=== PATIENT | male | born 1995 | race American Indian/Alaskan Native ===

== ENCOUNTER 2017-06-18 18:40 | Emergency (ER) | payer OTHER ==
[2017-06-18 19:37] VITALS: BP 151/87
[2017-06-18] MEDS ORDERED: TYLENOL PO ONE (21:21)
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
--- NOTE | 2017-06-18 22:43 | Cat Scan Report ---
FINAL REPORT EXAM: CT CERVICAL SPINE WO CON HISTORY: c/o neck pain TECHNIQUE: CT cervical spine with reconstructions PRIORS: None. FINDINGS: Vertebral bodies demonstrate normal height and alignment. The disk spaces are within normal limits. The facet joints demonstrate normal alignment. The spinous processes are intact. Craniocervical junction is unremarkable. C1 and C2 are intact. IMPRESSION: Negative CT cervical spine. No acute abnormality seen. Is
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
== END 2017-06-18 22:31 | disposition home or self-care (01) ==
LOC: ED 18:40
DX: S00.81XA Abrasion of other part of head, initial encounter (principal); M54.2 Cervicalgia; G44.89 Other headache syndrome; F17.200 Nicotine dependence, unspecified, uncomplicated; F12.10 Cannabis abuse, uncomplicated; V89.2XXA Person injured in unspecified motor-vehicle accident, traffic, initial encounter; Y93.89 Activity, other specified; Y92.89 Other specified places as the place of occurrence of the external cause; Y99.8 Other external cause status
CPT/HCPCS: 70450; 72125

== ENCOUNTER 2017-08-12 14:28 | Emergency (ER) | payer SELFPAY ==
--- NOTE | 2017-08-12 21:48 | Emergency Department Report ---
ED General Adult HPI - General Chief complaint: Rectal Pain Stated complaint: HEMROID Time Seen by Provider: 08/12/17 20:56 Source: patient Mode of arrival: Ambulatory Limitations: No Limitations - History of Present Illness Initial comments: Pt is a 22 M pmhx of hemorrhoids who presents with rectal pain. Pt's rectal pain is a 5/10 nothing makes the rectal pain better and defecation makes the pain worse. Pt states that he has had multiple hemorrhoids in the past but they usually last only two days. Pt states that he hasn't tried any sitz baths and that his diet is low on fiber. He denies having any bloody stools, n/v, constipation or fever. - Related Data Previous Rx's Medication Instructions Recorded Last Taken Type Bacitracin Zinc Oint [Antibiotic 1 applicatio TP BID #1 oint...g. 06/18/17 Unknown Rx Oint] Cyclobenzaprine [Flexeril] 10 mg PO TID PRN #10 tablet 06/18/17 Unknown Rx Ibuprofen [Motrin] 800 mg PO Q8HR PRN #30 tablet 06/18/17 Unknown Rx Naproxen 250 mg PO Q12HR #20 tablet 08/12/17 Unknown Rx Allergies Allergy/AdvReac Type Severity Reaction Status Date / Time No Known Allergies Allergy Unverified 08/12/17 15:30 ED Review of Systems ROS: Stated complaint: HEMROID Other details as noted in HPI Constitutional: denies: chills, fever Eyes: denies: eye pain, eye discharge, vision change ENT: denies: ear pain, throat pain Respiratory: denies: cough, shortness of breath, wheezing Cardiovascular: denies: chest pain, palpitations Endocrine: no symptoms reported Gastrointestinal: other (rectal pain ). denies: abdominal pain, nausea, diarrhea Genitourinary: denies: urgency, dysuria Musculoskeletal: denies: back pain, joint swelling, arthralgia Skin: denies: rash, lesions Neurological: denies: headache, weakness, paresthesias Psychiatric: denies: anxiety, depression Hematological/Lymphatic: denies: easy bleeding, easy bruising ED Past Medical Hx - Past Medical History Previous Medical History?: No - Surgical History Past Surgical History?: No - Social History Smoking Status: Current Every Day Smoker Substance Use Type: None - Medications Home Medications: Home Medications Medication Instructions Recorded Confirmed Last Taken Type Bacitracin Zinc Oint [Antibiotic 1 applicatio TP BID #1 oint...g. 06/18/17 Unknown Rx Oint] Cyclobenzaprine [Flexeril] 10 mg PO TID PRN #10 tablet 06/18/17 Unknown Rx Ibuprofen [Motrin] 800 mg PO Q8HR PRN #30 tablet 06/18/17 Unknown Rx Naproxen 250 mg PO Q12HR #20 tablet 08/12/17 Unknown Rx ED Physical Exam - General Limitations: No Limitations General appearance: alert, in no apparent distress - Head Head exam: Present: atraumatic, normocephalic - Eye Eye exam: Present: normal appearance - ENT ENT exam: Present: mucous membranes moist - Neck Neck exam: Present: normal inspection - Respiratory Respiratory exam: Present: normal lung sounds bilaterally. Absent: respiratory distress - Cardiovascular Cardiovascular Exam: Present: regular rate, normal rhythm. Absent: systolic murmur, diastolic murmur, rubs, gallop - GI/Abdominal GI/Abdominal exam: Present: soft, normal bowel sounds - Rectal Rectal exam: Present: hemorrhoids (external hemorrhoids) - Extremities Exam Extremities exam: Present: normal inspection - Back Exam Back exam: Present: normal inspection - Neurological Exam Neurological exam: Present: alert, oriented X3 - Psychiatric Psychiatric exam: Present: normal affect, normal mood - Skin Skin exam: Present: warm, dry, intact, normal color. Absent: rash ED Course Vital Signs 08/12/17 15:27 Temperature 97.7 F Pulse Rate 61 Respiratory 16 Rate Blood Pressure 130/70 O2 Sat by Pulse 100 Oximetry ED Medical Decision Making - Medical Decision Making Cdx: External hemorrhoid ddx: rectal peduncle, internal hemorrhoid I will recommend sitz baths to the patient and will give patient naprosyn to go home with. Discussed plan with patient patient agrees with plan and additional verbal discharge instructions were given. Critical care attestation.: If time is entered above; I have spent that time in minutes in the direct care of this critically ill patient, excluding procedure time. ED Disposition Clinical Impression: External hemorrhoid Disposition: DC-01 TO HOME OR SELFCARE Is pt being admited?: No Does the pt Need Aspirin: No Condition: Stable Instructions: Hemorrhoids (ED) Prescriptions: Naproxen 250 mg PO Q12HR #20 tablet Referrals: ELIJAH NARVAEZ MD [Primary Care Provider] - 3-5 Days
[2017-08-12 21:52] VITALS: BP 129/83
== END 2017-08-12 21:53 | disposition home or self-care (01) ==
LOC: ED 14:28
DX: K62.5 Hemorrhage of anus and rectum (principal); F17.200 Nicotine dependence, unspecified, uncomplicated
CPT/HCPCS: 99282

== ENCOUNTER 2017-09-09 05:36 | Emergency (ER) | payer SELFPAY ==
[2017-09-09 06:42] VITALS: BP 140/80
[2017-09-09 07:29] LABS: BUN/Creatinine Ratio 10; Blood Urea Nitrogen 12 mg/dL (9-20); Calcium 8.7 mg/dL (8.4-10.2); Hemolysis Index 22
[2017-09-09 07:51] LABS: Hematocrit 45.8 % (35.5-45.6); Hemoglobin 14.9 gm/dl (11.8-15.2); Mean Corpuscular HGB Conc 33 % (32-34); Mean Corpuscular Hemoglobin 29 pg (28-32); Mean Corpuscular Volume 89 fl (84-94); Platelet Count 152 K/mm3 (140-440); Red Blood Count 5.13 M/mm3 (3.65-5.03); Red Cell Distribution Width 14.4 % (13.2-15.2)
[2017-09-09 09:36] LABS: Bilirubin,Urine NEG (Negative); Blood,Urine NEG (Negative); Color,Urine Yellow (Yellow); Mucus,Urine FEW /HPF; Nitrite,Urine NEG (Negative); Protein,Urine <15 mg/dL mg/dL (Negative)
--- NOTE | 2017-09-09 09:38 | Emergency Department Report ---
HPI - General Chief Complaint: Weakness Time Seen by Provider: 09/09/17 09:29 - HPI HPI: 22-year-old -Citizen Of [place] male comes in for concern of having diabetes. Patient reports that he's been having symptoms that makes some syncope that he is a diabetic states that he's been thirsty and feeling dehydrated urinating more blurred vision tingling in his fingertips and states he has a sore on his left toe that is not healing. Patient also states he has had a 20 pound weight loss in the last couple of months without trying. Patient reports that he urinates about 5 times a day. He does admit that he does not drink a lot of fluids. 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 He reports that his weight currently is 189 a few months ago it was 219. Patient has no known drug allergies currently takes no medication and currently has no past medical history. ED Past Medical Hx - Past Medical History Previous Medical History?: No - Surgical History Past Surgical History?: No - Social History Smoking Status: Light Tobacco Smoker - Medications Home Medications: Home Medications Medication Instructions Recorded Confirmed Last Taken Type Bacitracin Zinc Oint [Antibiotic 1 applicatio TP BID #1 oint...g. 06/18/17 Unknown Rx Oint] Cyclobenzaprine [Flexeril] 10 mg PO TID PRN #10 tablet 06/18/17 Unknown Rx Ibuprofen [Motrin] 800 mg PO Q8HR PRN #30 tablet 06/18/17 Unknown Rx Naproxen 250 mg PO Q12HR #20 tablet 08/12/17 Unknown Rx ED Review of Systems ROS: Stated complaint: DIABETEC Other details as noted in HPI Endocrine: increased urine, unexplained weight loss Gastrointestinal: denies: abdominal pain, nausea, diarrhea Genitourinary: denies: urgency, dysuria Musculoskeletal: denies: back pain, joint swelling, arthralgia Skin: denies: rash, lesions Neurological: denies: headache, weakness, paresthesias Psychiatric: denies: anxiety, depression Physical Exam - Physical Exam Vital Signs: Vital Signs 09/09/17 09/09/17 06:09 06:28 Temperature 97.8 F 97.8 F Pulse Rate 70 62 Respiratory 18 18 Rate Blood Pressure 140/80 140/80 O2 Sat by Pulse 95 96 Oximetry Physical Exam: GENERAL APPEARANCE: Well developed, well nourished, in no acute distress. SKIN: Inspection of the skin reveals no rashes, ulcerations or petechiae. HEENT: The sclerae were anicteric and conjunctivae were pink and moist. Extraocular movements were intact and pupils were equal, round, and reactive to light with normal accommodation. External inspection of the ears and nose showed no scars, lesions, or masses. Lips, teeth, and gums showed normal mucosa. The oral mucosa, hard and soft palate, tongue and posterior pharynx were normal. NECK: Supple and symmetric. There was no thyroid enlargement, and no tenderness , or masses were felt. CHEST: Normal AP diameter and normal contour without any kyphoscoliosis. LUNGS: Auscultation of the lungs revealed normal breath sounds without any other adventitious sounds or rubs. CARDIOVASCULAR: There was a regular rate and rhythm without any murmurs, gallops , rubs. The carotid pulses were normal and 2+ bilaterally without bruits. Peripheral pulses were 2+ and symmetric. ABDOMEN: Soft and nontender with normal bowel sounds. The liver span was approximately 5-6 cm in the right midclavicular line by percussion. The liver edge was nontender. The spleen was not palpable. There were no inguinal or umbilical hernias noted. No ascites was noted. LYMPH NODES: No lymphadenopathy was appreciated in the neck, axillae or groin. MUSCULOSKELETAL: Gait was normal. There was no tenderness or effusions noted. Muscle strength and tone were normal. EXTREMITIES: No cyanosis, clubbing or edema. NEUROLOGIC: Alert and oriented x 3. Normal affect. Gait was normal. Normal deep tendon reflexes with no pathological reflexes. Sensation to touch was normal. ED Course Vital Signs 09/09/17 09/09/17 06:09 06:28 Temperature 97.8 F 97.8 F Pulse Rate 70 62 Respiratory 18 18 Rate Blood Pressure 140/80 140/80 O2 Sat by Pulse 95 96 Oximetry ED Medical Decision Making - Lab Data Result diagrams: 09/09/17 06:49 09/09/17 06:49 - Medical Decision Making Assessment evaluated this provider fast track. Labs are stable. Discussed with Dr. Porter feels that he has met the EMTALA. Patient is stable enough to have follow-up with outpatient for further evaluation. The callus on your left toe you need to be aware of your shoes that are throbbing your foot. Recommend changing her shoes every couple days. He can apply a pad or callus pad that she can get [id number] from the pharmacies. Patient verbalized understanding Critical care attestation.: If time is entered above; I have spent that time in minutes in the direct care of this critically ill patient, excluding procedure time. ED Disposition Clinical Impression: Callus of foot Disposition: DC-01 TO HOME OR SELFCARE Is pt being admited?: No Does the pt Need Aspirin: No Condition: Stable Additional Instructions: Please follow-up at [facility] or primary care of your choice for further evaluation. Referrals: PRIMARY CARE,MD [Primary Care Provider] - 3-5 Days [facility] [Provider Group] - 3-5 Days [facility] [Provider Group] - 3-5 Days Forms: Work/School Release Form(ED)
== END 2017-09-09 10:02 | disposition home or self-care (01) ==
LOC: ED 05:36
DX: E11.621 Type 2 diabetes mellitus with foot ulcer (principal); F17.200 Nicotine dependence, unspecified, uncomplicated
CPT/HCPCS: 36415; 80048; 81001; 82962; 85027; 99283

== ENCOUNTER 2018-02-03 02:03 | Emergency (ER) | payer SELFPAY ==
[2018-02-03 02:07] VITALS: BP 124/76
--- NOTE | 2018-02-03 03:01 | Emergency Department Report ---
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 his history of frequent ear infections and sinus infections these symptoms started 4 days ago bilateral earache and drainage and decreased hearing there is no fevers no chills no nausea vomiting no vertigo mild tinnitus symptoms are relieved by nothing symptoms are exacerbated by environmental exposure patient has not seen an ENT to this point MD complaint: ear pain Onset/Timin -: days(s) Location: R ear, L ear Severity: moderate Severity scale (0 -10): 4 Quality: aching Consistency: constant Improves with: NSAID Worsens with: movement Associated Symptoms: discharge from ear - Related Data Previous Rx's Medication Instructions Recorded Last Taken Type Bacitracin Zinc Oint [Antibiotic 1 applicatio TP BID #1 oint...g. 06/18/17 Unknown Rx Oint] Cyclobenzaprine [Flexeril] 10 mg PO TID PRN #10 tablet 06/18/17 Unknown Rx Ibuprofen [Motrin] 800 mg PO Q8HR PRN #30 tablet 06/18/17 Unknown Rx Naproxen 250 mg PO Q12HR #20 tablet 08/12/17 Unknown Rx Cipro/Dexameth 0.3/0.1% [Ciprodex 4 drops OT BID #1 bottle 02/03/18 Unknown Rx OTIC] Ibuprofen 800 mg PO TID PRN #30 tablet 02/03/18 Unknown Rx Allergies Allergy/AdvReac Type Severity Reaction Status Date / Time No Known Allergies Allergy Verified 02/03/18 02:12 ED Dental HPI - General Chief complaint: Earache Stated complaint: BILATERAL EAR PAIN Source: patient Mode of arrival: Ambulatory Limitations: No Limitations - Related Data Previous Rx's Medication Instructions Recorded Last Taken Type Bacitracin Zinc Oint [Antibiotic 1 applicatio TP BID #1 oint...g. 06/18/17 Unknown Rx Oint] Cyclobenzaprine [Flexeril] 10 mg PO TID PRN #10 tablet 06/18/17 Unknown Rx Ibuprofen [Motrin] 800 mg PO Q8HR PRN #30 tablet 06/18/17 Unknown Rx Naproxen 250 mg PO Q12HR #20 tablet 08/12/17 Unknown Rx Cipro/Dexameth 0.3/0.1% [Ciprodex 4 drops OT BID #1 bottle 02/03/18 Unknown Rx OTIC] Ibuprofen 800 mg PO TID PRN #30 tablet 02/03/18 Unknown Rx Allergies Allergy/AdvReac Type Severity Reaction Status Date / Time No Known Allergies Allergy Verified 02/03/18 02:12 ED Review of Systems ROS: Stated complaint: BILATERAL EAR PAIN Other details as noted in HPI Constitutional: denies: chills, fever Eyes: denies: eye pain, eye discharge, vision change ENT: ear pain Respiratory: denies: cough, shortness of breath, wheezing Cardiovascular: denies: chest pain, palpitations Endocrine: no symptoms reported Gastrointestinal: denies: abdominal pain, nausea, diarrhea Genitourinary: denies: urgency, dysuria Musculoskeletal: denies: back pain, joint swelling, arthralgia Skin: denies: rash, lesions Neurological: denies: headache, weakness, paresthesias Psychiatric: denies: anxiety, depression Hematological/Lymphatic: denies: easy bleeding, easy bruising ED Past Medical Hx - Past Medical History Previous Medical History?: No - Surgical History Past Surgical History?: No - Social History Smoking Status: Current Every Day Smoker Substance Use Type: Alcohol - Medications Home Medications: Home Medications Medication Instructions Recorded Confirmed Last Taken Type Bacitracin Zinc Oint [Antibiotic 1 applicatio TP BID #1 oint...g. 06/18/17 Unknown Rx Oint] Cyclobenzaprine [Flexeril] 10 mg PO TID PRN #10 tablet 06/18/17 Unknown Rx Ibuprofen [Motrin] 800 mg PO Q8HR PRN #30 tablet 06/18/17 Unknown Rx Naproxen 250 mg PO Q12HR #20 tablet 08/12/17 Unknown Rx Cipro/Dexameth 0.3/0.1% [Ciprodex 4 drops OT BID #1 bottle 02/03/18 Unknown Rx OTIC] Ibuprofen 800 mg PO TID PRN #30 tablet 02/03/18 Unknown Rx ED Physical Exam - General Limitations: No Limitations General appearance: alert, in no apparent distress - Head Head exam: Present: atraumatic - Eye Eye exam: Present: normal appearance, PERRL, EOMI Pupils: Present: normal accommodation - ENT ENT exam: Present: normal orophraynx, mucous membranes moist, normal external ear exam, other (bilat canal erythema pain purulent drainage ) - Expanded ENT Exam Expanded Ear exam: Present: normal external inspection. Absent: auricular trauma TM/Canal exam: Loss of Landmarks: Right TM, Left TM, Canal Discharge: Left TM, Right TM, Canal Tenderness: Right TM, Left TM Mouth exam: Present: normal external inspection, drooling, tongue normal. Absent: trismus, muffled voice, tongue elevation, laceration Throat exam: Positive: tonsillar erythema. Negative: tonsillomegaly, tonsillar exudate, R peritonsillar mass, L peritonsillar mass - Neck Neck exam: Present: normal inspection, full ROM. Absent: tenderness, meningismus, lymphadenopathy, thyromegaly - Respiratory Respiratory exam: Present: normal lung sounds bilaterally. Absent: respiratory distress, wheezes, stridor, chest wall tenderness - Cardiovascular Cardiovascular Exam: Present: regular rate, normal rhythm, normal heart sounds. Absent: systolic murmur, diastolic murmur, rubs, gallop - GI/Abdominal GI/Abdominal exam: Present: soft, normal bowel sounds, hernia. Absent: distended, tenderness, guarding, rebound, rigid, organomegaly, mass, bruit, pulsatile mass - Rectal Rectal exam: Present: deferred - Extremities Exam Extremities exam: Present: normal inspection - Back Exam Back exam: Present: normal inspection, full ROM. Absent: tenderness, CVA tenderness (R), CVA tenderness (L), muscle spasm, paraspinal tenderness, vertebral tenderness, rash noted - Neurological Exam Neurological exam: Present: alert, oriented X3, CN II-XII intact, normal gait, reflexes normal. Absent: motor sensory deficit - Psychiatric Psychiatric exam: Present: normal affect, normal mood. Absent: depressed, agitated, anxious, flat affect, manic, homicidal ideation, suicidal ideation - Skin Skin exam: Present: warm, dry, intact, normal color. Absent: rash ED Course Vital Signs 02/03/18 02/03/18 02:00 02:08 Temperature 97.5 F L 97.5 F L Pulse Rate 65 66 Respiratory 18 18 Rate Blood Pressure 124/76 124/76 O2 Sat by Pulse 99 98 Oximetry ED Medical Decision Making - Medical Decision Making this is OE, plan: Ciprodex 5 drops bid x 7 days , ibuprofen 800 mg po tid prn pain , follow up with ENT in 2-3 days , return to ED if symptoms worsen, pt verbalized agreement and understanding of same for dc to home in stable condition at this time. Critical care attestation.: If time is entered above; I have spent that time in minutes in the direct care of this critically ill patient, excluding procedure time. ED Disposition Clinical Impression: Actinic otitis externa of both ears Qualifiers: Chronicity: acute Qualified Code(s): H60.513 - Acute actinic otitis externa, bilateral Disposition: DC-01 TO HOME OR SELFCARE Is pt being admited?: No Does the pt Need Aspirin: No Instructions: Otitis Externa (ED) Prescriptions: Cipro/Dexameth 0.3/0.1% [Ciprodex OTIC] 4 drops OT BID #1 bottle Ibuprofen 800 mg PO TID PRN #30 tablet PRN Reason: pain fever Referrals: NEELA TONY MD [Staff Physician] - 3-5 Days Forms: Work/School Release Form(ED) Time of Disposition: 03:16
[2018-02-03] MEDS ORDERED: MOTRIN PO ONE (03:15)
== END 2018-02-03 03:50 | disposition home or self-care (01) ==
LOC: ED 02:03
DX: H60.513 Acute actinic otitis externa, bilateral (principal); F17.200 Nicotine dependence, unspecified, uncomplicated
CPT/HCPCS: 99282

== ENCOUNTER 2021-12-07 10:01 | Emergency (ER) | payer SELFPAY ==
[2021-12-07 10:17] VITALS: BP 140/76
== END 2021-12-07 19:19 | disposition left against medical advice (07) ==
LOC: ED 10:01
DX: K62.5 Hemorrhage of anus and rectum (principal); Z53.21 Procedure and treatment not carried out due to patient leaving prior to being seen by health care provider

== ENCOUNTER 2021-12-08 01:47 | Emergency (ER) | payer SELFPAY ==
--- NOTE | 2021-12-08 06:11 | Emergency Department Report ---
ED General Adult HPI - General Chief complaint: Rectal Pain Stated complaint: RECTAL BLEEDING Source: patient Mode of arrival: Ambulatory Limitations: No Limitations - History of Present Illness Initial comments: Patient is a 26-year-old -Faroese male with no past medical history who presents to the ED with complaint of acute onset persistent rectal pain and intermittent bleeding from persistent external hemorrhoids for the last 1 week. Patient states that about 8 hours ago he noticed that there was bleeding in his underwear and he decided come to the ED for evaluation. Patient denies dizziness, syncope, nausea and vomiting, abdominal pain, testicular pain, dysuria, urinary frequency and urgency and hematuria or fever and chills. MD Complaint: RECTAL PAIN, HEMORRHOID -: Sudden, week(s) (1) Location: buttocks Radiation: non-radiation Quality: aching, sharp Consistency: intermittent Improves with: none Worsens with: none, other (Bowel movement) Associated Symptoms: denies other symptoms. denies: confusion, chest pain, cough, diaphoresis, fever/chills, headaches, loss of appetite, malaise, rash, seizure, shortness of breath, syncope, weakness Treatments Prior to Arrival: none - Related Data Previous Rx's Medication Instructions Recorded Last Taken Type Bacitracin Zinc Oint [Antibiotic 1 applicatio TP BID #1 oint...g. 06/18/17 Unknown Rx Oint] Cyclobenzaprine [Flexeril] 10 mg PO TID PRN #10 tablet 06/18/17 Unknown Rx Naproxen 250 mg PO Q12HR #20 tablet 08/12/17 Unknown Rx Cipro/Dexameth 0.3/0.1% [Ciprodex 4 drops OT BID #1 bottle 02/03/18 Unknown Rx OTIC] Ibuprofen 800 mg PO TID PRN #30 tablet 02/03/18 Unknown Rx Albuterol Mdi (or & Nicu Only) 2 puff IH QID PRN #1 inhalation 08/04/18 Unknown Rx [ProAir HFA Inhaler] Codeine Phosphate/Guaifenesin 10 ml PO Q6H PRN #100 liquid 08/04/18 Unknown Rx [Robafen AC Oral Solution] predniSONE [Deltasone] 20 mg PO QDAY #5 tab 08/04/18 Unknown Rx Dibucaine 1% [Nupercainal] 1 applicatio [place] TID #1 tube 12/08/21 Unknown Rx Hydrocortisone [Anusol-Hc 2.5% TOP 30 gm RC BID #1 tube 12/08/21 Unknown Rx CREAM] Ibuprofen [Motrin 800 MG tab] 800 mg PO Q8HR PRN #30 tablet 12/08/21 Unknown Rx Allergies Allergy/AdvReac Type Severity Reaction Status Date / Time No Known Allergies Allergy Verified 02/03/18 02:12 ED Review of Systems ROS: Stated complaint: RECTAL BLEEDING Other details as noted in HPI Constitutional: denies: chills, fever Eyes: denies: eye pain, eye discharge, vision change ENT: denies: ear pain, throat pain Respiratory: denies: cough, shortness of breath, wheezing Cardiovascular: denies: chest pain, palpitations Endocrine: no symptoms reported Gastrointestinal: other (Rectal pain and bleeding). denies: abdominal pain, nausea, diarrhea Genitourinary: denies: urgency, dysuria Musculoskeletal: denies: back pain, joint swelling, arthralgia Skin: denies: rash, lesions Neurological: denies: headache, weakness, paresthesias Psychiatric: denies: anxiety, depression Hematological/Lymphatic: denies: easy bleeding, easy bruising ED Past Medical Hx - Social History Smoking Status: Current Every Day Smoker Substance Use Type: None - Medications Home Medications: Home Medications Medication Instructions Recorded Confirmed Last Taken Type Bacitracin Zinc Oint [Antibiotic 1 applicatio TP BID #1 oint...g. 06/18/17 Unknown Rx Oint] Cyclobenzaprine [Flexeril] 10 mg PO TID PRN #10 tablet 06/18/17 Unknown Rx Naproxen 250 mg PO Q12HR #20 tablet 08/12/17 Unknown Rx Cipro/Dexameth 0.3/0.1% [Ciprodex 4 drops OT BID #1 bottle 02/03/18 Unknown Rx OTIC] Ibuprofen 800 mg PO TID PRN #30 tablet 02/03/18 Unknown Rx Albuterol Mdi (or & Nicu Only) 2 puff IH QID PRN #1 inhalation 08/04/18 Unknown Rx [ProAir HFA Inhaler] Codeine Phosphate/Guaifenesin 10 ml PO Q6H PRN #100 liquid 08/04/18 Unknown Rx [Robafen AC Oral Solution] predniSONE [Deltasone] 20 mg PO QDAY #5 tab 08/04/18 Unknown Rx Dibucaine 1% [Nupercainal] 1 applicatio AZ TID #1 tube 12/08/21 Unknown Rx Hydrocortisone [Anusol-Hc 2.5% TOP 30 gm RC BID #1 tube 12/08/21 Unknown Rx CREAM] Ibuprofen [Motrin 800 MG tab] 800 mg PO Q8HR PRN #30 tablet 12/08/21 Unknown Rx ED Physical Exam - General Limitations: No Limitations General appearance: alert, in no apparent distress - Head Head exam: Present: atraumatic, normocephalic, normal inspection - Eye Eye exam: Present: normal appearance, PERRL, EOMI Pupils: Present: normal accommodation - ENT ENT exam: Present: normal exam, normal orophraynx, mucous membranes moist, TM's normal bilaterally, normal external ear exam - Neck Neck exam: Present: normal inspection, full ROM - Respiratory Respiratory exam: Present: normal lung sounds bilaterally. Absent: respiratory distress, rales, rhonchi, chest wall tenderness, accessory muscle use, decreased breath sounds - Cardiovascular Cardiovascular Exam: Present: regular rate, normal rhythm, normal heart sounds. Absent: systolic murmur, diastolic murmur, rubs, gallop - GI/Abdominal GI/Abdominal exam: Present: soft, normal bowel sounds. 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 Absent: tenderness, CVA tenderness (R), CVA tenderness (L), muscle spasm, paraspinal tenderness, vertebral tenderness - Neurological Exam Neurological exam: Present: alert, oriented X3, CN II-XII intact, normal gait, reflexes normal - Psychiatric Psychiatric exam: Present: normal affect, normal mood - Skin Skin exam: Present: warm, dry, intact, normal color. Absent: rash ED Course Vital Signs 12/08/21 03:14 Temperature 98.0 F Pulse Rate 73 Respiratory 18 Rate Blood Pressure 141/64 O2 Sat by Pulse 98 Oximetry ED Medical Decision Making - Medical Decision Making This is a 26-year-old -Faroese male with no past medical history who presents to the ED with complaint of acute onset persistent rectal pain and intermittent bleeding from persistent external hemorrhoids for the last 1 week. Patient states that about 8 hours ago he noticed that there was bleeding in his underwear and he decided come to the ED for evaluation. In the ED, patient is alert and oriented x3 and is not in any distress. Patient was discharged home on pain medications and advised to follow-up with his primary care physician in 7 to 10 days for reevaluation. Patient was also advised and encouraged to increase water intake and to increase fiber with his diet to improve on his symptoms. Patient was advised return to the ED immediately if symptoms get worse. - Differential Diagnosis External hemorrhoids; internal hemorrhoid; thrombosed hemorrhoid; Critical care attestation.: If time is entered above; I have spent that time in minutes in the direct care of this critically ill patient, excluding procedure time. ED Disposition Clinical Impression: External hemorrhoids without complication, Anal or rectal pain Disposition: 01 HOME / SELF CARE / HOMELESS Is pt being admited?: No Does the pt Need Aspirin: No Condition: Stable Instructions: Hemorrhoids, [id number] Additional Instructions: Apply the medication to the affected area as advised, take medication as needed for pain. Follow-up with your primary care physician in 7 to 10 days for reevaluation. Increase your water intake and fiber intake to improve in the symptoms. Return to the ED immediately if symptoms get worse. Prescriptions: Hydrocortisone [Anusol-Hc 2.5% TOP CREAM] 30 gm RC BID #1 tube Ibuprofen [Motrin 800 MG tab] 800 mg PO Q8HR PRN #30 tablet PRN Reason: Pain Dibucaine 1% [Nupercainal] 1 applicatio AZ TID #1 tube Referrals: [facility] [Provider Group] - 3-5 Days Forms: Work/School Release Form(ED) Time of Disposition: 06:09 Print Language: [id number]
[2021-12-08 06:34] VITALS: BP 140/60
== END 2021-12-08 06:33 | disposition home or self-care (01) ==
LOC: ED 01:47
DX: K64.4 Residual hemorrhoidal skin tags (principal); F17.200 Nicotine dependence, unspecified, uncomplicated; Z79.899 Other long term (current) drug therapy
CPT/HCPCS: 99282